=== PATIENT | female | born 1980 | race Caucasian/White ===

== ENCOUNTER 2018-08-24 12:54 | Observation (INO) ==
[2018-08-24 13:29] LABS: Basophils # 0.1 10*3/uL (0.0-0.2); Basophils % 0.9 % (0.0-0.8); Eosinophils # 0.1 10*3/uL (0.0-0.87); Eosinophils % 1.5 % (0.00-10.9); Hematocrit 41.3 VOL% (35.7-47.0); Hemoglobin 13.4 GM/DL (12.0-16.0); Immature Granulocytes % 0.3 %; Immature Granulocytes Absolute 0.02 #; Lymphocytes # 2.1 10*3/uL (1.4-4.0); Lymphocytes % 26.7 % (21.3-54.2); Mean Corpuscular HGB Conc 32.4 GM/DL (32-36); Mean Corpuscular Volume 92.8 FL (87-102); Mean Platelet Volume 10.6 FL (9.6-12.0); Monocytes % 8.2 % (1.7-12.7); Neutrophils % 62.4 % (38.7-73.9); Platelet Count 226 T/CUMM (130-400); Red Blood Count 4.45 MC/CUMM (3.8-5.5); Red Cell Distribution Width 13.9 % (9.3-17.3)
[2018-08-24 13:38] LABS: INR 0.9; Partial Thromboplastin Time 26.7 SECS (0-40)
[2018-08-24 14:05] LABS: Alanine Aminotransferase 21 U/L (13-56); Albumin 4.1 G/DL (3.4-5.0); Alkaline Phosphatase 42 U/L (45-117); Aspartate Amino Transferase 11 U/L (0-37); Bilirubin,Total < 0.39 MG/DL (0.2-1.0); Blood Urea Nitrogen 6 MG/DL (7-18); Calcium 8.7 MG/DL (8.5-10.1); Free T4 (Free Thyroxine) 0.75 NG/DL (0.76-1.46); Glucose 95 MG/DL (74-106); Osmolality,Calculated 274.5 MOS/KG (273-304); Total Protein 7.3 G/DL (6.4-8.3)
[2018-08-24] MEDS ORDERED: ENOXAPARIN 80 MG/0.8 ML SYRINGE SUBCUT STA (15:08)
[2018-08-24] MEDS ORDERED: ACETAMINOPHEN 500 MG TABLET ONE (16:18)
[2018-08-24] MEDS ORDERED: ACETAMINOPHEN 325 MG TABLET PO ONE (16:22)
[2018-08-24] MEDS ORDERED: ONDANSETRON 4 MG/2 ML VIAL IV PRN (16:41)
[2018-08-24] MEDS ORDERED: diphenhydrAMINE CAP 25 MG CAPSULE PO PRN (16:41)
[2018-08-24] MEDS ORDERED: guaiFENesin/DM ER 600-30 MG TABLET PO PRN (16:41)
[2018-08-24] MEDS ORDERED: BISACODYL 5 MG TABLET PO PRN (16:41)
[2018-08-24] MEDS ORDERED: DOCUSATE SODIUM 100 MG CAPSULE PO PRN (16:41)
[2018-08-24] MEDS ORDERED: ACETAMINOPHEN 325 MG TABLET PO PRN (16:41)
[2018-08-24] MEDS ORDERED: ZALEPLON 5 MG CAPSULE PO PRN (16:41)
[2018-08-24] MEDS ORDERED: NICOTINE 21 MG/24 HR PATCH TRANSDERM PRN (16:41)
[2018-08-25] MEDS ORDERED: ENOXAPARIN 80 MG/0.8 ML SYRINGE SUBCUT SCH (05:30)
[2018-08-25 05:36] LABS: Calcium 8.4 MG/DL (8.5-10.1); Osmolality,Calculated 274.5 MOS/KG (273-304)
[2018-08-25] MEDS ORDERED: LEVOTHYROXINE 150 MCG TABLET PO SCH (06:30)
[2018-08-25 08:08] VITALS: BP 109/70
[2018-08-25] MEDS ORDERED: PANTOPRAZOLE 40 MG TABLET PO SCH (09:00)
[2018-08-25] MEDS ORDERED: ENOXAPARIN 40 MG/0.4 ML SYRINGE SUBCUT SCH (09:00)
== END 2018-08-25 10:50 | disposition home or self-care (01) ==
LOC: N.ED 12:54 → N.EDINP 12:54 → N.TELES 16:56
PROVIDERS: ADMIT Hospitalist; ATTEND Hospitalist